=== PATIENT | male | born 1960 | race Caucasian/White ===

== ENCOUNTER → 2016-12-27 | Day surgery (SDC) | payer MEDICARE, OTHER ==
[~2016-12-27] MED LIST: AMLODIPINE BESYL5 MG PO; ATORVASTATIN CA10 MG PO; FLEXERIL10 MG PO; GABAPENTIN300 MG PO; HYDROCODON-ACE1 EAC5 PO; LOPRESSOR PO; MELOXICAM15 MG PO; MICROZIDE12.5 M1 PO; PROTONIX PO
--- NOTE | ~2016-12-27 | OR ---
Unit #: [id number] #: [id number] Patient: SHAHID LARSON [id number] [address] [place], [place] [address] [id number] O MR#: [id number] NAME: SHAHID LARSON ROOM: Date of Procedure: 12/27/2016 Admission Date: 12/27/2016 Surgeon: Adam Pack M.D. : 1960 Attending Physician: Adam Pack M.D. Primary Care Physician: Dilip Sharpe M.D. OPERATIVE REPORT PRIMARY CARE PHYSICIAN Dilip Sharpe M.D. PREOPERATIVE DIAGNOSIS Colorectal cancer screening in an average-risk patient. PROCEDURE PERFORMED Colonoscopy up to cecum with excellent preparation and good visualization. POSTOPERATIVE DIAGNOSES The patient had small internal hemorrhoids. Otherwise, normal examination up to cecum and terminal ileum. The quality of the prep was excellent. The patient had to be given extra prep and the procedure was repeated after additional prep. RECOMMENDATIONS Surveillance colonoscopy in future. Repeat colonoscopy in 10 years. SEDATION USED MAC. DESCRIPTION OF PROCEDURE Following detailed explanation of potential risks and complications of a colonoscopy, namely perforation, bleeding, and complication related to sedation, the patient was brought to GI lab and laid in the left lateral decubitus position. Digital rectal examination was performed, which was normal. Lubricated tip of the Olympus video colonoscope was inserted through the anus and advanced under direct vision. The scope was advanced past rectosigmoid into descending colon. No diverticula were noted in this area. The scope tip was then navigated all the way up to cecum with visualization of the ileocecal valve and the appendiceal orifice. Preparation was excellent with good visualization and photodocumentation was obtained. Last several inches of the terminal ileum were also visualized after intubation of the ileocecal valve and appeared normal. Successive segments of the colonic mucosa were examined upon withdrawal and appeared unremarkable. There being no polyps, mass lesions, AVMs, or diverticula. The patient did have small internal hemorrhoids seen at the anal verge on retroflexion. The scope was then withdrawn and the patient returned to recovery area. He tolerated the procedure without any postprocedure complications. Unit #: [id number] #: [id number] Patient: SHAHID LARSON Dictated by... Celso Heaton/margarito TD: 12/27/2016 14:06 JOB #: [id number] CC: Dilip Sharpe M.D. OPERATIVE REPORT Page 1 of 1 X Adam Pack MD X PROCEDURE OPERATIVE NOTE
== END | disposition home or self-care (01) ==
LOC: COPS 09:00
DX: Z12.11 Encounter for screening for malignant neoplasm of colon (principal); K64.8 Other hemorrhoids; K21.9 Gastro-esophageal reflux disease without esophagitis; I10 Essential (primary) hypertension; Z79.891 Long term (current) use of opiate analgesic; Z79.899 Other long term (current) drug therapy; Z98.1 Arthrodesis status; Z98.890 Other specified postprocedural states
CPT/HCPCS: J2250